=== PATIENT | male | born 1955 | race African-American/Black ===

== ENCOUNTER 2022-10-26 13:18 | Inpatient (IN) ==
[2022-10-26] MEDS ORDERED: ACETAMINOPHEN 325 MG TABLET PO PRN (20:09)
[2022-10-26] MEDS ORDERED: ONDANSETRON 4 MG/2 ML VIAL IV PRN (20:09)
[2022-10-26] MEDS ORDERED: MORPHINE 2 MG/1 ML SYRINGE IV PRN (20:09)
[2022-10-26] MEDS ORDERED: DOCUSATE SODIUM 100 MG CAPSULE PO PRN (21:23)
[2022-10-26] MEDS ORDERED: KETOROLAC 15 MG/1 ML VIAL IV PRN (21:24)
[2022-10-26] MEDS ORDERED: AZITHROMYCIN INJ 500 MG in SODIUM CHLORIDE 0.9% 250 ML IV SCH (22:00)
[2022-10-26] MEDS ORDERED: cefTRIAXone 1,000 MG in SODIUM CHLORIDE 0.9% 100 ML IV SCH (22:00)
[2022-10-26 22:08] LABS: Basophils % 0.1 % (0.0-0.8); Hematocrit 40.4 VOL% (42.0-52.0); Hemoglobin 12.2 GM/DL (14.0-18.0); Immature Granulocytes % 0.9 %; Immature Granulocytes Absolute 0.17 #; Lymphocytes # 0.3 10*3/uL (1.4-4.0); Lymphocytes % 1.5 % (21.2-54.2); Mean Corpuscular HGB Conc 30.2 GM/DL (32-36); Mean Corpuscular Volume 96.9 FL (87-102); Mean Platelet Volume 11.3 FL (9.6-12.0); Monocytes # 1.5 10*3/uL (0.11-0.8); Monocytes % 8.1 % (1.7-12.7); Neutrophils % 89.4 % (38.7-73.9); Platelet Count 368 T/CUMM (130-400); Red Blood Count 4.17 MC/CUMM (3.8-5.5); Red Cell Distribution Width 13.6 % (9.3-17.3); White Blood Count 17.94 T/CUMM (4-12)
[2022-10-26 22:25] LABS: Albumin 2.5 G/DL (3.4-5.0); Bilirubin,Total 0.4 MG/DL (0.20-1.00); Calcium 9.4 MG/DL (8.5-10.1); Osmolality,Calculated 284.4 MOS/KG (273-304); Potassium 4.9 MMOL/L (3.5-5.1); Total Protein 6.5 G/DL (6.4-8.2)
[2022-10-26] MEDS: methylPREDNISolone SOD SUC 40 MG/1 ML VIAL IV SCH (22:32)
[2022-10-26 22:36] LABS: Lymphocytes 5 % (20-55); Platelet Estimate Adequate; Total Cells Counted 100
[2022-10-27] MEDS ORDERED: ALBUTEROL/IPRATROPIUM 3 ML NEB RESP TX ONE (00:33)
[2022-10-27] MEDS: LEVALBUTEROL 1.25 MG/3 ML NEB RESP TX SCH ×4 (01:10→19:59)
[2022-10-27 05:13] LABS: Basophils % 0.1 % (0.0-0.8); Hematocrit 39.6 VOL% (42.0-52.0); Immature Granulocytes % 1.3 %; Immature Granulocytes Absolute 0.24 #; Lymphocytes # 0.3 10*3/uL (1.4-4.0); Lymphocytes % 1.8 % (21.2-54.2); Mean Corpuscular HGB Conc 30.3 GM/DL (32-36); Mean Corpuscular Volume 97.1 FL (87-102); Mean Platelet Volume 11.9 FL (9.6-12.0); Monocytes # 1.8 10*3/uL (0.11-0.8); Monocytes % 9.8 % (1.7-12.7); Platelet Count 355 T/CUMM (130-400); Red Blood Count 4.08 MC/CUMM (3.8-5.5); Red Cell Distribution Width 13.7 % (9.3-17.3)
[2022-10-27] MEDS ORDERED: methylPREDNISolone SOD SUC 125 MG/2 ML VIAL IV ONE (05:33)
[2022-10-27 05:35] LABS: Lymphocytes 2 % (20-55); Total Cells Counted 100
[2022-10-27 05:37] LABS: Hypochromia Slight; Platelet Estimate Adequate
[2022-10-27 05:38] LABS: Alanine Aminotransferase 36 U/L (16-61); Albumin 2.5 G/DL (3.4-5.0); Alkaline Phosphatase 83 U/L (45-117); Aspartate Amino Transferase 16 U/L (0-37); Bilirubin,Total < 0.39 MG/DL (0.20-1.00); Blood Urea Nitrogen 24 MG/DL (7-18); Calcium 9.8 MG/DL (8.5-10.1); Carbon Dioxide 33 MMOL/L (21-32); Chloride 102 MMOL/L (98-107); Glucose 117 MG/DL (74-106); Osmolality,Calculated 285.3 MOS/KG (273-304); Potassium 4.3 MMOL/L (3.5-5.1); Sodium 141 MMOL/L (136-145); Total Protein 6.5 G/DL (6.4-8.2)
[2022-10-27] MEDS: methylPREDNISolone SOD SUC 40 MG/1 ML VIAL IV SCH ×3 (05:54→22:18)
[2022-10-27] MEDS: BUDESONIDE 0.5 MG/2 ML NEB RESP TX SCH ×3 (07:20→19:59)
[2022-10-27] MEDS ORDERED: PREGABALIN 50 MG CAPSULE PO SCH (09:00)
[2022-10-27] MEDS: SENNA 8.6 MG TABLET PO SCH ×2 (09:33→21:29)
[2022-10-27] MEDS: FINASTERIDE 5 MG TABLET PO SCH (09:33)
[2022-10-27] MEDS: TAMSULOSIN 0.4 MG CAPSULE PO SCH (09:33)
[2022-10-27] MEDS: DULoxetine 30 MG CAPSULE PO SCH (09:33)
[2022-10-27] MEDS: FUROSEMIDE 20 MG TABLET PO SCH ×2 (09:33→16:31)
[2022-10-27] MEDS: ENOXAPARIN 40 MG/0.4 ML SYRINGE SUBCUT SCH (09:34)
[2022-10-27] MEDS: PANTOPRAZOLE 40 MG TABLET PO SCH (09:34)
[2022-10-27] MEDS: POLYETHYLENE GLYCOL POWDER 17 GM PACK PO SCH (09:34)
[2022-10-27] MEDS ORDERED: MORPHINE 2 MG/1 ML SYRINGE IV PRN (15:55)
[2022-10-27] MEDS ORDERED: LORazepam 2 MG/1 ML VIAL IV PRN (15:56)
[2022-10-27] MEDS ORDERED: HYDROmorphone 1 MG/1 ML SYRINGE IV PRN (18:00)
[2022-10-27] MEDS ORDERED: HYDROmorphone 1 MG/1 ML SYRINGE IV SCH (18:00)
[2022-10-27] MEDS: ATORVASTATIN 40 MG TABLET PO SCH (21:29)
[2022-10-28] MEDS: LEVALBUTEROL 1.25 MG/3 ML NEB RESP TX SCH ×4 (01:13→20:55)
[2022-10-28] MEDS: methylPREDNISolone SOD SUC 40 MG/1 ML VIAL IV SCH ×3 (05:37→21:14)
[2022-10-28] MEDS: BUDESONIDE 0.5 MG/2 ML NEB RESP TX SCH ×2 (07:24→20:55)
[2022-10-28] MEDS: FINASTERIDE 5 MG TABLET PO SCH (09:18)
[2022-10-28] MEDS: DULoxetine 30 MG CAPSULE PO SCH (09:18)
[2022-10-28] MEDS: PANTOPRAZOLE 40 MG TABLET PO SCH (09:18)
[2022-10-28] MEDS: FUROSEMIDE 20 MG TABLET PO SCH ×2 (09:18→16:58)
[2022-10-28] MEDS: TAMSULOSIN 0.4 MG CAPSULE PO SCH (09:18)
[2022-10-28] MEDS: SENNA 8.6 MG TABLET PO SCH ×2 (09:18→21:25)
[2022-10-28] MEDS: POLYETHYLENE GLYCOL POWDER 17 GM PACK PO SCH (09:19)
[2022-10-28] MEDS: ENOXAPARIN 40 MG/0.4 ML SYRINGE SUBCUT SCH (09:19)
[2022-10-28] MEDS: ATORVASTATIN 40 MG TABLET PO SCH (21:25)
[2022-10-29] MEDS: LEVALBUTEROL 1.25 MG/3 ML NEB RESP TX SCH ×2 (01:33→07:10)
[2022-10-29] MEDS: methylPREDNISolone SOD SUC 40 MG/1 ML VIAL IV SCH (05:05)
[2022-10-29] MEDS: BUDESONIDE 0.5 MG/2 ML NEB RESP TX SCH (07:10)
[2022-10-29 08:35] VITALS: BP 139/82
[2022-10-29] MEDS: FUROSEMIDE 20 MG TABLET PO SCH (09:42)
[2022-10-29] MEDS: PANTOPRAZOLE 40 MG TABLET PO SCH (09:42)
[2022-10-29] MEDS: DULoxetine 30 MG CAPSULE PO SCH (09:42)
[2022-10-29] MEDS: TAMSULOSIN 0.4 MG CAPSULE PO SCH (09:42)
[2022-10-29] MEDS: ENOXAPARIN 40 MG/0.4 ML SYRINGE SUBCUT SCH (09:43)
[2022-10-29] MEDS: FINASTERIDE 5 MG TABLET PO SCH (09:46)
[2022-10-29] MEDS: POLYETHYLENE GLYCOL POWDER 17 GM PACK PO SCH (09:46)
[2022-10-29] MEDS: SENNA 8.6 MG TABLET PO SCH (10:48)
== END 2022-10-29 12:35 | disposition hospice, home (50) | DRG 180 ==
LOC: N.TELES → SUATTDRO 19:41
PROVIDERS: ADMIT Internal Medicine; ATTEND Internal Medicine